=== PATIENT | female | born 1940 | race Caucasian/White ===

== ENCOUNTER → 2017-07-27 | Outpatient (CLI) | payer MEDICARE ==
[2017-07-27 13:18] LABS: BUN 10 mg/dL (7-18)
[2017-07-27 14:11] LABS: GFR (ESTIMATED) 36 ML/MIN (59-)
== END ==
LOC: LAB 11:36
PROVIDERS: Nurse Practitioner Family
DX: I10 Essential (primary) hypertension (principal); R25.2 Cramp and spasm; E78.2 Mixed hyperlipidemia; E03.9 Hypothyroidism, unspecified